=== PATIENT | male | born 1945 | race Caucasian/White ===

== ENCOUNTER → 2017-01-18 | Outpatient (CLI) | payer MEDICARE, BC ==
[~2017-01-18] MED LIST: CRESTOR10 MG PO; LEVOTHYROXINE125 MCG PO; LO-DOSE ASPIRIN81 M2 PO; METOPROLOL SUCC25 MG PO; TAMSULOSIN HCL0.4 MG PO; VITAMIN D400 UNIT PO
== END | disposition home or self-care (01) ==
LOC: CDC 12:27
DX: Z01.810 Encounter for preprocedural cardiovascular examination (principal)
CPT/HCPCS: 93000

== ENCOUNTER 2017-01-28 07:02 | Day surgery (SDC) | payer OTHER, BC ==
[~2017-01-28] VITALS: Ht 177.8 cm; Wt 78.5 kg
[2017-01-28 07:36] VITALS: BP 174/80
[2017-01-28 11:58] VITALS: BP 170/92
[2017-01-28 15:26] VITALS: BP 151/70
[2017-01-28 19:23] VITALS: BP 117/58
[2017-01-28 23:34] VITALS: BP 146/70
[2017-01-29 03:35] VITALS: BP 132/83
[2017-01-29 03:40] VITALS: BP 106/57
[2017-01-29 07:12] VITALS: BP 142/78
[2017-01-29 11:47] VITALS: BP 134/87
== END 2017-01-29 14:36 | disposition home or self-care (01) ==
LOC: SDC → 2SOUTH 10:06 → 2EAST 10:06 → SDC 13:12 → 2EAST 01-29 14:36
PROC: 0TBB8ZX Excision of Bladder, Via Natural or Artificial Opening Endoscopic, Diagnostic (ICD-10-PCS; principal; 2017-01-28)
DX: C67.3 Malignant neoplasm of anterior wall of bladder (principal); I25.10 Atherosclerotic heart disease of native coronary artery without angina pectoris; E78.5 Hyperlipidemia, unspecified; E03.9 Hypothyroidism, unspecified; Z85.850 Personal history of malignant neoplasm of thyroid; Z82.49 Family history of ischemic heart disease and other diseases of the circulatory system; Z80.9 Family history of malignant neoplasm, unspecified; Z79.02 Long term (current) use of antithrombotics/antiplatelets; Z79.82 Long term (current) use of aspirin; I25.2 Old myocardial infarction; Z95.5 Presence of coronary angioplasty implant and graft
CPT/HCPCS: 88307; G0378; J0690; J2250; J2405; J7050